=== PATIENT | male | born 1955 | race Caucasian/White ===

== ENCOUNTER → 2016-10-09 | Outpatient (CLI) | payer OTHER ==
--- NOTE | 2016-10-09 13:44 | EKG ---
Date Performed: 10/09/2016 Time Performed: 09:53:39 PTAGE: 61 years EKG: Sinus rhythm WITH SINUS ARRHYTHMIA NONSPECIFIC T-WAVE ABNORMALITY BORDERLINE ECG NO PREVIOUS TRACING DOCTOR: Greg Sam Interpretating Date/Time 10/09/2016 13:40:19
== END ==
LOC: HCAV 09:45
DX: M75.122 Complete rotator cuff tear or rupture of left shoulder, not specified as traumatic (principal); I49.8 Other specified cardiac arrhythmias
CPT/HCPCS: 93005